=== PATIENT | male | born 1960 | race Caucasian/White ===

== ENCOUNTER 2016-08-10 21:32 | Emergency (ER) | payer OTHER ==
[~2016-08-10] VITALS: Ht 182.9 cm; Wt 115.7 kg
[2016-08-10 21:40] VITALS: BP 135/81
[2016-08-10 21:59] LABS: ABSOLUTE BASOPHIL COUNT 0 /CUMM (0.0-0.2); ABSOLUTE EOSINOPHIL COUNT 0.1 /CUMM (0.0-0.7); ABSOLUTE GRANULOCYTE CT 3.6 /CUMM (1.4-6.5); ABSOLUTE MONOCYTE COUNT 0.6 /CUMM (0.10-0.60); BASOPHIL % 0.6 % (0.0-2.0); GRANULOCYTE % 56.8 % (42.2-75.2); HEMATOCRIT 34.7 % (42-52); MEAN CORPUSCULAR HGB 32.7 PG (27.0-31.0); MEAN CORPUSCULAR HGB CONC 33.7 G/DL (33.0-37.0); MEAN CORPUSCULAR VOLUME 97.1 FL (80.0-94.0); MEAN PLATELET VOLUME 10.2 FL (7.4-10.4); PLATELET COUNT 104 /CUMM (130-400); RBC DISTRIBUTION WIDTH 14.7 % (11.5-14.5); RED BLOOD CELL CT 3.58 /CUMM (4.70-6.10); WHITE BLOOD CELL COUNT 6.4 /CUMM (4.8-10.8)
--- NOTE | 2016-08-10 23:15 | ED UPPER/LOWER EXTREMITY COMPL ---
History of Present Illness General Chief Complaint: Lower Extremity Problems Stated Complaint: BILATERAL LEG SWELLING PER PT Source: patient Exam Limitations: no limitations Vital Signs & Intake/Output Vital Signs & Intake/Output Vital Signs Date Time Temp Pulse Resp B/P Pulse O2 O2 Flow FiO2 Ox Delivery Rate 08/10 2323 98 Room Air 08/10 2140 99.2 56 18 135/81 99 Room Air ED Intake and Output 08/11 0000 08/10 1200 Intake Total Output Total Balance Patient 255 lb Weight Allergies Coded Allergies: MDX - PCN (penicillin) (PCN (PENICILLIN)) (PT DOESNT REMEMBER RXN 07/20/11) Reconcile Medications Furosemide (Lasix) 20 MG TABLET 1 TAB PO DAILY LEG EDEMA Triage Note: PT TO ED C/O BLE EDEMA AND 50 LB WEIGHT GAIN OVER 2 WEEKS. PT STATES HE LAST 230 LBS THROUGH DIET AND EXERCISE SINCE LAST AUGUST. HAS BEEN RUNNING FREQUENTLY. READ IN [employer] THAT BEEF JERKY IS "A GOOD SNACK FOR RUNNERS" ATE BEEF JERKY FOR A WEEK AND WEIGHT AND LE EDEMA BOTH INCREASED. WEIGHT AND EDEMA CONTINUED TO INCREASE AFTER STOPPING BEEF JERKY. TOOK OTC DIARETIC AND IS NOW DOWN 20 LBS. HAS TRIED TO LIMIT SALT INTAKE. COULD NOT GET IN TO SEE DR GALEAS FOR WEEKS. WENT TO WALK IN AND WAS SENT HERE. DENIES PAIN, INCLUDING CHEST PAIN. DENIES SOB. DID RUN 5 MILES AT [employer] ON WEDNESDAY Triage Nurses Notes Reviewed? yes Onset: Gradual Duration: getting worse Timing: recent history Severity: severe Severity Numbers: 8 HPI: Patient is a 55-year-old male who presents emergency room with concerns of lower extremity edema and increased weight gain of 40 pounds in the past 3 weeks. Patient does state that he had a history of obesity WHERE in the past 10 months he has had a significant weight loss due to diet and exercising however in the past 3 weeks he has noted an increase in weight gain IN WHICH HE states that he eats TWO jars of pickles a day and eats a significant amount of BEEF JERKY and has been driving a lot IN HIS motor vehicle AND [employer]ENT[employer] FOR WORK. Patient denies any calf pain, denies any fevers chills hemoptysis shortness of breath cough abdominal pain or leg erythema or warmth. (EDIN MIRELES,ABEL) Past History Travel History Traveled to [place] past 21 day No Medical History Any Pertinent Medical History? none Neurological: NONE EENT: NONE Cardiovascular: NONE Respiratory: NONE Gastrointestinal: NONE Hepatic: NONE Renal: NONE Musculoskeletal: NONE Psychiatric: NONE Endocrine: NONE Surgical History Surgical History: non-contributory Psychosocial History What is your primary language Guatemalan Tobacco Use: Never used Family History Hx Contributory? No (ABEL LOMELI) Review of Systems Review of Systems Constitutional: Reports: no symptoms. EENTM: Reports: no symptoms. Respiratory: Reports: no symptoms. Cardiovascular: Reports: see HPI, peripheral edema. Gastrointestinal/Abdominal: Reports: no symptoms. Genitourinary: Reports: no symptoms. Musculoskeletal: Reports: see HPI. Skin: Reports: no symptoms. Neurological/Psychological: Reports: no symptoms. Hematologic/Endocrine: Reports: no symptoms. Immunological: Reports: no symptoms. All Other Systems: Reviewed and Negative (ABEL LOMELI) Physical Exam Physical Exam General Appearance: no apparent distress, alert, comfortable Neurologic/Tendon: normal sensation, normal motor functions, normal tendon functions, responds to pain, no evidence tendon injury, no pulse deficit Skin: intact, normal color, warm/dry Comments: Well-developed well-nourished person in no acute distress HEENT: Normal EENT exam,. Neck: Supple, no lymphadenopathy, normal range of motion without pain or tenderness Back: Nontender, no CVA tenderness Cardiovascular: Regular rate and rhythms no murmurs rubs or gallops, normal JVP Respiratory: Chest nontender. No respiratory distress.breath sounds clear to auscultation bilaterally Abdomen: Soft, nontender nondistended, no appreciable organomegaly. Normal bowel sounds. No ascites Extremity: +3 nonpitting edema BIlateral lower extremity below the knee no calf tenderness to palpation, normal and equal pulses. Neuro: Alert oriented x3, motor sensory normal, Skin: No appreciable rash on exposed skin, skin is warm and dry. Psych: Mood and affect is normal, memory and judgment is normal. (ABEL LOMELI) Progress Differential Diagnosis: arterial insufficiency, cellulitis, CHF, compartment syndrome, contusion, dislocation, DVT, fracture, gout, septic arthritis, sprain, tendon injury Plan of Care: Orders Procedure Date/time Status COMPREHENSIVE METABOLIC PANEL 08/11 2147 Complete CBC WITHOUT DIFFERENTIAL 08/11 2147 Complete Laboratory Tests 08/10/162147: Anion Gap 11, Estimated GFR > 60, BUN/Creatinine Ratio 38.3 H, Glucose 66, Calcium 9.4, Total Bilirubin 0.4, AST 44, ALT 98 H, Alkaline Phosphatase 46, Total Protein 6.5, Albumin 4.2, Globulin 2.3, Albumin/Globulin Ratio 1.8, CBC w Diff NO MAN DIFF REQ, RBC 3.58 L, MCV 97.1 H, MCH 32.7 H, RDW 14.7 H, MPV 10.2, Gran % 56.8, Lymphocytes % 31.4, Monocytes % 9.2, Eosinophils % 2.0, Basophils % 0.6, Absolute Granulocytes 3.6, Absolute Lymphocytes 2.0, Absolute Monocytes 0.6, Absolute Eosinophils 0.1, Absolute Basophils 0, PUBS MCHC 33.7 Patient has no concerns at this time of pulmonary embolism however patient was strongly advised to follow to receive ultrasound tomorrow for DVT rule out. Patient denies any cardiovascular symptoms. I discussed with patient to improve his dietary habits which is most likely causing fluid retention Patient was strongly advised to follow-up with discharge instructions and plan and he had no questions. (ABEL LOMELI) Departure Departure Disposition: HOME OR SELF CARE Condition: Stable Clinical Impression Primary Impression: Leg swelling Referrals: ZEFERINO TOVAR,SHAHRZAD Freedman (PCP/Family) Additional Instructions: As discussed tomorrow please call the central scheduling phone number at [phone] to the Department of radiology to obtain a appointment for an ultrasound of your legs to rule out DVT. Began to elevate your feet for swelling. Begin the prescription Lasix for swelling. If symptoms worsen return to emergency room. Please limit your dietary habits of pickles and beef jerky as this may worsen her symptoms. Begin eating a well healthy balanced diet. Prescriptions awaiting at [facility] pharmacy. Departure Forms: Customer Survey General Discharge Information Prescriptions: Current Visit Scripts Furosemide (Lasix) 1 TAB PO DAILY #5 TAB (ABEL LOMELI) PA/BOARD LINER OPERATOR Co-Sign Statement Statement: ED Attending supervision documentation- [] I saw and evaluated the patient. I have also reviewed all the pertinent lab results and diagnostic results. I agree with the findings and the plan of care as documented in the PA's/BOARD LINER OPERATOR's documentation. [X] I have reviewed the ED Record and agree with the PA's/BOARD LINER OPERATOR's documentation. [] Additions or exceptions (if any) to the PAs/BOARD LINER OPERATOR's note and plan are summarized below: [] (JANES TOVAR,CARLOTA Poole)
[2016-08-10] MEDS ORDERED: LASIX20 M1 PO (23:42)
== END 2016-08-10 23:43 ==
LOC: ERH 21:32
PROVIDERS: Emergency Medicine
DX: M79.89 Other specified soft tissue disorders (principal)